=== PATIENT | female | born 1985 | race Caucasian/White ===

== ENCOUNTER 2021-03-22 16:08 | Emergency (ER) | payer SELFPAY ==
[~2021-03-22] VITALS: Ht 157.5 cm; Wt 79.4 kg
--- NOTE | 2021-03-22 16:25 | ED Abdominal Pain ---
General Chief Complaint: OB < 20 WEEKS Stated Complaint: CRAMPS,SWOLLEN LEGS, 6 WEEKS Source of Information: Patient Exam Limitations: No Limitations (PACO LEAHY APRN) History of Present Illness Date Seen by Provider: Mar 22, 2021 Time Seen by Provider: 16:23 Initial Comments To ER with lower abdominal cramping onset last night. She is G4. She has a history of a right-sided ectopic treated surgically several years ago. She has lower abdominal cramping onset today without any bleeding as of yet. She estimates herself to be about 6 weeks gestation. She does not have a local healthcare provider she just moved here from [place]. She works at the [employer] and states that standing upright at work seems to make this pain worse. She also states that one of her coworkers called out sick because of Covid and she would like to get tested herself. However, she has no nausea vomiting fevers chills loss of taste or smell general weakness cough diarrhea or any other Covid symptoms. Timing/Duration: 1-2 Days Severity/Quality: Moderate Location: Suprapubic Radiation: No Radiation Activities at Onset: None Associated Symptoms: Denies Symptoms (PACO LEAHY APRN) Allergies and Home Medications Allergies Coded Allergies: No Known Drug Allergies (Unverified , 03/22/21) Home Medications Cefuroxime Axetil 250 Mg Tablet, 250 MG PO BID Prescribed by: PACO LEAHY on 03/22/21 690 Patient Home Medication List Home Medication List Reviewed: Yes (PACO LEAHY APRN) Review of Systems Review of Systems Constitutional: see HPI EENTM: No Symptoms Reported Respiratory: No Symptoms Reported Cardiovascular: No Symptoms Reported Gastrointestinal: See HPI, Abdominal Pain, Nausea Genitourinary: No Symptoms Reported Musculoskeletal: no symptoms reported Skin: no symptoms reported Psychiatric/Neurological: No Symptoms Reported Endocrine: No Symptoms Reported Hematologic/Lymphatic: No Symptoms Reported (PACO LEAHY APRN) Physical Exam Vital Signs Vital Signs - First Documented 03/22/21 03/22/21 16:20 19:20 Temp 37.1 Pulse 94 Resp 19 B/P (MAP) 120/87 (98) Pulse Ox 100 O2 Delivery Room Air (ADELSO MARIE MD) Vital Signs Capillary Refill : (PACO LEAHY APRN) Height/Weight/BMI Height: '" Weight: lbs. oz. kg; BMI Method: General Appearance: WD/WN, no apparent distress HEENT: PERRL/EOMI, normal ENT inspection Respiratory: no respiratory distress, no accessory muscle use Gastrointestinal: normal bowel sounds, non tender, soft Extremities: normal range of motion, non-tender Neurologic/Psychiatric: alert, normal mood/affect, oriented x 3 Skin: normal color, warm/dry (PACO LEAHY APRN) Progress/Results/Core Measures Results/Orders Lab Results Laboratory Tests Test 03/22/21 16:28 03/22/21 16:41 Range/Units White Blood Count 8.2 4.3-11.0 10^3/uL Red Blood Count 4.51 3.80-5.11 10^6/uL Hemoglobin 13.6 11.5-16.0 g/dL Hematocrit 41 35-52 % Mean Corpuscular Volume 90 80-99 fL Mean Corpuscular Hemoglobin 30 25-34 pg Mean Corpuscular Hemoglobin Concent 34 32-36 g/dL Red Cell Distribution Width 12.7 10.0-14.5 % Platelet Count 246 130-400 10^3/uL Mean Platelet Volume 10.8 9.0-12.2 fL Immature Granulocyte % (Auto) 0 % Neutrophils (%) (Auto) 74 42-75 % Lymphocytes (%) (Auto) 18 12-44 % Monocytes (%) (Auto) 7 0-12 % Eosinophils (%) (Auto) 1 0-10 % Basophils (%) (Auto) 1 0-10 % Neutrophils # (Auto) 6.1 1.8-7.8 10^3/uL Lymphocytes # (Auto) 1.5 1.0-4.0 10^3/uL Monocytes # (Auto) 0.6 0.0-1.0 10^3/uL Eosinophils # (Auto) 0.0 0.0-0.3 10^3/uL Basophils # (Auto) 0.0 0.0-0.1 10^3/uL Immature Granulocyte # (Auto) 0.0 0.0-0.1 10^3/uL Sodium Level 135 135-145 MMOL/L Potassium Level 5.8 H 3.6-5.0 MMOL/L Chloride Level 107 98-107 MMOL/L Carbon Dioxide Level 19 L 21-32 MMOL/L Anion Gap 9 5-14 MMOL/L Blood Urea Nitrogen 9 7-18 MG/DL Creatinine 0.79 0.60-1.30 MG/DL Estimat Glomerular Filtration Rate 84 BUN/Creatinine Ratio 11 Glucose Level 94 70-105 MG/DL Calcium Level 9.1 8.5-10.1 MG/DL Corrected Calcium 8.8 8.5-10.1 MG/DL Total Bilirubin 0.5 0.1-1.0 MG/DL Aspartate Amino Transf (AST/SGOT) 45 H 5-34 U/L Alanine Aminotransferase (ALT/SGPT) 20 0-55 U/L Alkaline Phosphatase 72 40-136 U/L Total Protein 8.4 H 6.4-8.2 GM/DL Albumin 4.4 3.2-4.5 GM/DL Human Chorionic Gonadotropin, Quant [id number] H <5 MIU/ML SARS-CoV-2 RNA (RT-PCR) Not Detected Not Detecte Urine Color ORANGE Urine Clarity CLOUDY Urine pH 5.5 5-9 Urine Specific Locke >=1.030 1.016-1.022 Urine Protein TRACE H NEGATIVE Urine Glucose (UA) NEGATIVE NEGATIVE Urine Ketones NEGATIVE NEGATIVE Urine Nitrite POSITIVE H NEGATIVE Urine Bilirubin NEGATIVE NEGATIVE Urine Urobilinogen 1.0 < = 1.0 MG/DL Urine Leukocyte Esterase NEGATIVE NEGATIVE Urine RBC (Auto) NEGATIVE NEGATIVE Urine RBC 0-2 /HPF Urine WBC 5-10 H /HPF Urine Squamous Epithelial Cells 10-25 H /HPF Urine Renal Epithelial Cells 0-2 /HPF Urine Crystals NONE /LPF Urine Bacteria LARGE H /HPF Urine Casts NONE /LPF Urine Mucus NEGATIVE /LPF Urine Culture Indicated YES (ADELSO MARIE MD) Micro Results Microbiology 03/22/21 Urine Culture - Final, Complete Escherichia coli (ADELSO MARIE MD) Vital Signs/I&O 03/22/21 03/22/21 16:20 19:20 Temp 37.1 37.0 Pulse 94 81 Resp 19 16 B/P (MAP) 120/87 (98) 108/65 (98) Pulse Ox 100 O2 Delivery Room Air Room Air (ADELSO MARIE MD) Departure Impression Primary Impression: Urinary tract infection Disposition: 01 HOME, SELF-CARE Condition: Stable Departure-Patient Inst. Decision time for Depature: 17:17 (PACO LEAHY APRN) Referrals: NO,LOCAL PHYSICIAN (PCP) Primary Care Physician Patient Instructions: Urinary Tract Infection, Adult (DC) Scripts Cefuroxime Axetil (Cefuroxime) 250 Mg Tablet 250 MG PO BID, #10 TAB Prov: PACO LEAHY APRN 03/22/21 ATTENDING PHYSICIAN NOTE: I was physically present as attending physician in the emergency department during the care of this patient, but I was not directly involved in the decision making or delivery of care for this patient. (ADELSO MARIE MD) PACO LEAHY APRN Mar 22, 2021 16:25 ADELSO MARIE MD Mar 25, 2021 20:36
[2021-03-22 16:46] LABS: ALBUMIN 4.4 GM/DL (3.2-4.5)
[2021-03-22 16:47] LABS: POTASSIUM 5.8 MMOL/L (3.6-5.0)
[2021-03-22 16:48] LABS: CALCIUM 9.1 MG/DL (8.5-10.1)
[2021-03-22 16:49] LABS: TOTAL PROTEIN 8.4 GM/DL (6.4-8.2)
[2021-03-22 16:50] LABS: BILIRUBIN,URINE NEGATIVE (NEGATIVE); CLARITY,URINE CLOUDY; COLOR,URINE ORANGE; GLUCOSE, URINE (UA) NEGATIVE (NEGATIVE); KETONES,URINE NEGATIVE (NEGATIVE); LEUKOCYTE ESTERASE ,URINE NEGATIVE (NEGATIVE); NITRITE,URINE POSITIVE (NEGATIVE); PH,URINE 5.5 (5-9); PROTEIN,URINE TRACE (NEGATIVE)
[2021-03-22 16:51] LABS: BASOPHILS % (AUTO) 1 % (0-10); BILIRUBIN,TOTAL 0.5 MG/DL (0.1-1.0); EOSINOPHILS % (AUTO) 1 % (0-10); HEMATOCRIT 41 % (35-52); HEMOGLOBIN 13.6 g/dL (11.5-16.0); LYMPHOCYTES # (AUTO) 1.5 10^3/uL (1.0-4.0); LYMPHOCYTES % (AUTO) 18 % (12-44); MEAN CORPUSCULAR HEMOGLOBIN 30 pg (25-34); MEAN CORPUSCULAR HGB CONC 34 g/dL (32-36); MEAN CORPUSCULAR VOLUME 90 fL (80-99); MEAN PLATELET VOLUME 10.8 fL (9.0-12.2); MONOCYTES # (AUTO) 0.6 10^3/uL (0.0-1.0); MONOCYTES % (AUTO) 7 % (0-12); NEUTROPHILS # (AUTO) 6.1 10^3/uL (1.8-7.8); NEUTROPHILS % (AUTO) 74 % (42-75); PLATELET COUNT 246 10^3/uL (130-400); WHITE BLOOD COUNT 8.2 10^3/uL (4.3-11.0)
[2021-03-22 16:53] LABS: CREATININE SERUM 0.79 MG/DL (0.60-1.30)
[2021-03-22 17:03] LABS: BACTERIA,URINE LARGE /HPF; RBC,URINE 0-2 /HPF; RENAL EPITHELIAL CELLS,URINE 0-2 /HPF
[2021-03-22] MEDS ORDERED: CEFU250T80 PO (18:22)
[2021-03-22] MEDS ORDERED: CEFDINIR 300 MG (OMNICEF) CAP PO ONE (18:30)
[2021-03-22 19:20] VITALS: BP 108/65
--- NOTE | 2021-03-22 19:42 | Diagnostic Imaging Report ---
Exam: Ultrasound OB less than 14 weeks. Date: March 22, 2021. Indication: 35-year-old female, right-sided abdominal pain. History of ectopic . Comparison: None. Findings: The uterus measures 8.4 x 6.3 x 7.3 cm in size. There is a cystic right ovarian mass measuring 3.1 x 3.1 x 3.2 cm in size compatible with a simple cyst. There is blood flow to the right ovary. Left ovary is not well seen. Both transabdominal and endovaginal approaches were utilized. There is an intrauterine gestational sac round in shape. There is a pole with heart rate of 117 bpm. Estimated gestational age based on today's crown rump length measurement is 6 weeks and 4 days +/- 1 week. Impression: 1. Single living intrauterine with estimated gestational age of 6 weeks and 4 days +/- 1 week. 2. Simple appearing right ovarian cyst. 3. No maternal free pelvic fluid. 4. No evidence to suggest an ectopic . Dictated by: Dictated on workstation # [id number]
== END 2021-03-22 19:23 | disposition home or self-care (01) ==
LOC: ER 16:14
DX: O23.41 Unspecified infection of urinary tract in pregnancy, first trimester (principal); Z20.822 Contact with and (suspected) exposure to COVID-19; Z3A.01 Less than 8 weeks gestation of pregnancy
CPT/HCPCS: 36415; 76801; 76817; 80053; 81000; 84702; 85025; 86900; 86901; 87077; 87088; 87186; 87636